=== PATIENT | male | born 1980 | race Caucasian/White ===

== ENCOUNTER 2017-12-26 07:00 | Inpatient (IN) | payer OTHER ==
[~2017-12-26] VITALS: Ht 185.4 cm; Wt 92.5 kg
[~2017-12-26 07:00] MED LIST: ALLOPURINOL100 M1 PO; AUGMENTIN 875875 MG PO; CANASA1000 MG RC; DICYCLOMINE HCL10 M1 PO; MERCAPTOPURINE50 M1 PO; MULTIVITAMINS1 EAC9 PO
[2018-01-22 06:37] LABS: ABSOLUTE BASOPHIL COUNT 0 /CUMM (0.0-0.2); ABSOLUTE EOSINOPHIL COUNT 3.2 /CUMM (0.0-0.7); ABSOLUTE GRANULOCYTE CT 4.7 /CUMM (1.4-6.5); ABSOLUTE LYMPH COUNT 1.8 /CUMM (1.2-3.4); BASOPHIL % 0.4 % (0.0-2.0); EOSINOPHIL % 29.6 % (0-5); GRANULOCYTE % 43.6 % (42.2-75.2); HEMATOCRIT 32.8 % (42-52); MEAN CORPUSCULAR HGB 31.8 PG (27.0-31.0); MEAN CORPUSCULAR HGB CONC 32.7 G/DL (33.0-37.0); MEAN PLATELET VOLUME 6.3 FL (7.4-10.4); PLATELET COUNT 742 /CUMM (130-400); RBC DISTRIBUTION WIDTH 18.8 % (11.5-14.5); RED BLOOD CELL CT 3.39 /CUMM (4.70-6.10); WHITE BLOOD CELL COUNT 10.8 /CUMM (4.8-10.8)
--- NOTE | 2018-01-22 14:45 | Admission Core Measures ---
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
--- NOTE | 2018-01-22 14:50 | Patient Discharge Instructions ---
Discharge Instructions General Discharge Information You were seen/treated for: Indeterminate colitis Cystotomy You had these procedures: Robotic procotocolectomy with diverting ileostomy Cystostomy repair Watch for these problems: Increased pain, nausea, vomiting, fever > 101.3, chills, redness or drainage from incisions Call Surgeon to remove: [place] Do not soak the wound: Yes Daily wet to dry dressings: No No bath, but you may shower: Yes Other wound care: Keep incisions clean and dry Keep ESTELA in place until wills is removed Special Instructions: Follow up with Urologist, Dr. Calderon on 02/04 for cystoscopy and wills removal Diet Continue normal diet: No Recommended Diet: Low Residue Activity Full Activity/No Limits: No Activity Self Limited: Yes Pounds, do NOT lift more than: 10 Other activity limits: No heavy lifting or strenous activity Acute Coronary Syndrome Inclusion Criteria At DC or during hospital stay patient has or had the following: ACS DIAGNOSIS No Discharge Core Measures Meds if any: Prescribed or Continued at Discharge Meds if any: NOT Prescribed or Continued at Discharge Congestive Heart Failure Inclusion Criteria At DC or during hospital stay patient has or had the following: CHF DIAGNOSIS No Discharge Core Measures Meds if any: Prescribed or Continued at Discharge Meds if any: NOT Prescribed or Continued at Discharge Cerebrovascular accident Inclusion Criteria At DC or during hospital stay patient has or had the following: CVA/TIA Diagnosis No Discharge Core Measures Meds if any: Prescribed or Continued at Discharge Meds if any: NOT Prescribed or Continued at Discharge Venous thromboembolism Inclusion Criteria VTE Diagnosis No VTE Type NONE VTE Confirmed by (Test) NONE Discharge Core Measures - Per Current guidelines, there needs to be overlap - treatment for the first 5 days of Warfarin therapy. - If discharged on Warfarin prior to 5 days of - overlap therapy, the patient will need to be - assessed for post discharge needs including - *Post discharge parental anticoagulation - *Warfarin and/or parental anticoagulation education - *Follow up date to check INR post discharge At least 5 days overlap therapy as Inpatient No Meds if any: Prescribed or Continued at Discharge Note: Overlap Therapy is Warfarin and Anticoagulant Meds if any: NOT Prescribed or Continued at Discharge
--- NOTE | 2018-01-22 15:00 | Operative Report ---
Operative/Inv Procedure Report Surgery Date: 01/22/18 Name of Procedure: 1. Robotic total proctocolectomy with formation of ileoanal J-pouch and diverting ileostomy 2. Repair of cystotomy 3. Rigid sigmoidoscopy Pre-Operative Diagnosis: Indeterminant colitis failing medical therapy Post-Operative Diagnosis: Indeterminant colitis failing medical therapy Estimated Blood Loss: 50ml to 100ml Surgeon/Instructor Traffic Safety: Jean-Pierre Paz Jr., DO Anesthesia: general endotracheal tube, block Monitors: Per routine Urine Output: Refer to anesthesia record Drains: One ESTELA in the pelvis Downs catheter Specimens: Total proctocolectomy for routine path Complications: Inadvertent cystostomy-puncture of urinary bladder Condition: Good Operative Indication: This is a 37-year-old gentleman with colitis thought to likely be ulcerative colitis but officially diagnosis indeterminate colitis. He has failed multiple medical regimens continues to be very symptomatic. Patient was referred to me for discussion of total colectomy with J-pouch. After careful discussion consideration patient decided to proceed with surgery. Patient understands that if his diagnosis were to change to Crohn's disease and he would have a high likelihood of losing his pouch. We also discussed other potential complications of surgery including: Infection, bleeding, injury to other organs, and postop urogenital dysfunction Operative/Procedure Note Note: On the day before his procedure the patient about prep at home including oral laxatives and oral antibiotics. He presented to [facility] morning of his surgery after drinking 12 ounces of apple juice. When the patient arrived at the hospital he received the usual ERAS medications. He was taken into the operating room. Placed in supine position on the operating room table. He underwent induction of general anesthesia placement of endotracheal tube and placement of Downs catheter. Next he had bilateral TAP blocks performed by the anesthesia department. He then was converted to lithotomy position and secured to the bed with both arms tucked. Next, the abdomen and perineum were prepped and draped in usual fashion. We gained access the abdominal cavity using a Veress needle technique. The Veress needle was inserted in the midclavicular line just subcostal on the left in the abdomen was insufflated to 15 mmHg. The robotic ports were placed in a line drawn between the midclavicular line in the left in the right lower quadrant. The #1, #2, and #3 ports were 8 mm da Mihai ports. The #4 port was a 12 mm da Mihai stapler port. A right lateral 8 mm air seal assistant corporate controller port was placed. A 5 mm left lower quadrant and a 5 mm left upper quadrant port was also placed. Fluoroscopic expiration of the abdominal cavity was performed the small bowel appeared completely normal. The colon appeared inflamed and swollen especially on the left side. The patient was placed in Trendelenburg right side down. The robot was docked. The rectosigmoid was grasped and I began my dissection. I incised the peritoneum at the sacral promontory into the posterior avascular space of the rectum and then did a medial to lateral dissection until I could clearly identify the iliac vessels on the left in the ureter on the left. I also did clearly identify the right ureter. Next I continued my mobilization in the posterior avascular space of the rectum until I reached the levators posteriorly. The rectal stalks were divided first to the right into the left using the vessel sealing device. I developed the plane between the urogenital structures and the anterior rectum anteriorly also to light reached the levators. At this point I prepared to take the vascular structures. The inferior mesenteric artery and vein were identified. The vessels were skeletonized. The vessels were then divided and ligated with a robotic 45 mm white stapler. Next I mobilized the white line of Toldt from the pelvic inlet all the way until the very proximal descending colon. At this point I prepared to transect the rectum. The rectum was transected just above the levators and anterior to posterior fashion with a robotic 45 mm green GOLDIE stapler. A second stapling was required to complete the transection. Next using table motioned the patient was converted to reverse Trendelenburg. I divided the remainder of the left colon mesentery using the robotic vessel sealer. I completely took down the splenic flexure using the robotic vessel sealer and was able to take down part of the gastrocolic ligament as well as part of the transverse colon mesentery was divided. At this point the robot was undocked and we proceeded with laparoscopic dissection. The patient was placed in slight Trendelenburg left side down the cecum was identified. I traced out the ileal colic vessels as they crossed over the duodenum. The vessels were skeletonized to the right lateral side of the duodenum and then divided with the LigaSure device. I carried out a medial to lateral dissection freeing the nasal colon from Gerona's fascia in the avascular space until I reached the lateral sidewall. Line of Toldt was taken down using the LigaSure and the hepatic flexure was taken down. I Continued to carry out my dissection now dividing the colic ligament for the entire length of the transverse colon. Made sure to identify the duodenum and the stomach and acute by dissection safely away from the structures. I then divided the remaining transverse colon mesentery using the lap scopic LigaSure device. At this point the colon had been completely mobilized and completely disconnected from its blood supply. Pneumoperitoneum was let down. A 6 cm Pfannenstiel incision was performed 2 cm breaths above the pubic symphysis. A wound protector was placed through this incision and I was able to extract the entire colon and a good portion of the terminal ileum through this incision. The mesentery at the junction of the terminal ileum and cecum w was ligated and divided with the vessel sealer. A 60 mm purple GOLDIE stapler was used to transect the bowel at the level of the ileocecal valve. The specimen was removed from the field. Next we fashioned a J-pouch. The terminal ileum was folded over on itself to create a 20 cm J limb. I tacked the 2 sides of the limb together with interrupted 3-0 Vicryl sutures. I imbricated the GOLDIE staple line in a Lembert fashion with interrupted 3-0 Vicryl sutures. Enterotomy was made at the apex of the J. The GOLDIE stapler was then used to create the common channel. 3 firings of the 60 mm load and 1 firing of the 45 mm pupil load were used to create the common channel. Next I reinforced the staple line with interrupted 3-0 Vicryl sutures placed in Lembert fashion. A handsewn her string was performed at the open end of the J-pouch with 2-0 Prolene suture. I chose a 28 EEA stapler for anastomosis. The anvil was placed deliver the bowel and the [place] was tied snugly around the PEG of the bowel. The pouch was reduced back into the abdominal cavity and the cap was placed over the protector. We reestablished pneumoperitoneum we swept all the small bowel out of the pelvis we irrigated out the pelvis and inspected for hemostasis. Hemostasis was good. First the EEA sizers and then the EEA stapler passed transanally the spike was advanced through the rectal pouch right through the staple line almost at the central portion of the staple line. The 2 ends of the stapler were laparoscopically mated. We made sure there was no kinking or twisting in the mesentery to the pouch. This was filled with sterile saline the bowel was occluded above the pouch and a air test was performed which was negative for air leaks. The rigid sigmoidoscope was used perform this test and I inspected the pouch which appeared hemostatic and airtight. Next I chose my ileostomy site about 30-40 cm proximal to the pouch and a umbilical tape was threaded through the mesentery. Umbilical tape was grasped with a laparoscopic grasper through the #3 port which was to become the ileostomy site. A ESTELA drain was placed in the pelvis to the right lower quadrant 12 mm port. Next, pneumoperitoneum was let down. The #38 mm port was then converted to stoma site a tumor plug of skin and soft tissue was excised down to the fascia fascia was divided in a cruciate fashion I gently dilated the fashion was able to pull the small bowel through the fascia using the umbilical tape. The tape was exchanged with a red rubber catheter. Next we prepare for closure.. As I was preparing to close the peritoneum of the Pfannenstiel incision I noticed a small cystotomy at the apex of the dome of the bladder. This was clearly a full-thickness cystotomy but only about 5 mm in length. This cystotomy was closed in 2 layers. The inner layer was closed with a running 3-0 Vicryl suture. A second layer was performed with interrupted 3-0 Vicryl's in Lembert fashion reinforcing the inner staple line. The perineum was closed with a running 2-0 Vicryl suture. The fascia was closed transversely with a #1 PDS suture. The subcutaneous tissue was copiously irrigated and then the skin was closed with skin kristian. Ports had all been removed under direct visualization of the laparoscope and all the ports were closed with subcuticular 4-0 Monocryl and then skin glue. The abdomen was cleansed and dried. Sterile dressing was placed over the anus incision. Drain sponges placed around the ESTELA had been secured to the skin with 3-0 nylon. The abdomen was toweled off and we matured the stoma. A double barrel Clau type stoma was created with interrupted 3-0 Vicryl sutures. The red rubber catheter was converted to a stoma bridge secured to the skin on either side of the stoma and then tails were tied together with heavy nylon suture. A stomal collection device was placed. The patient was converted back to supine position. Patient was explained in the operating room. The patient tolerated the procedure well. At the end of this operational needle sponges and Schmidts were accounted for. Findings: No evidence of small bowel Crohn's disease Discharge Disposition: Same Day Admissions CC: Dm TIM,Don
[2018-01-22 16:10] VITALS: BP 124/82
--- NOTE | 2018-01-22 17:11 | PN- General Surgery ---
Subjective Subjective: POSTOP CHECK Patient reports nausea sensation which resolved with Zofran. He reports pelvic and bladder pain. He reports shoulder pain. He denies drinking or ambulating. He offers no other complaints. Objective Vital Signs and I&Os afebrile, VSS, O2 98% on 3L Physical Exam: Gen - nad, on 3L O2 via nc HEENT - subq crepitus in upper chest, neck and face Cardiac - S1S2 noted Lungs - CTAB Abd - soft, nondistended, ileostomy with gas and bilious/liquid stool in the ostomy bag, nellie drain with serosanguinous drainage, reinforced with abds, pelvic dressing c/d/i, faint bs, appropriately tender per-incisionally, no rebound or guarding Ext - alps in place, no edema or calf pain Current Medications: Current Medications Sig/Steve Start time Last Medication Dose Route Stop Time Status Admin Acetaminophen 1,000 MG TID 01/22 2100 AC PO Acetaminophen 0 .STK-MED ONE 01/22 0702 DC PO Acetaminophen 2,000 MG .STK-MED ONE 01/22 0653 DC IV 01/22 0654 Acetaminophen 1,000 MG ONCE 01/22 0000 DC PO 01/22 2359 Allopurinol 100 MG DAILY 01/23 0900 AC PO Alvimopan 12 MG BID 01/22 2100 AC PO Alvimopan 12 MG ONCE 01/22 0000 DC PO 01/22 2359 Bupivacaine Liposome 266 MG .STK-MED ONE 01/22 0747 DC INF 01/22 0748 Cefazolin Sodium 2 GM IQ8 01/22 1600 AC N/A 1 UNIT IV 01/23 0029 Dextrose/Sodium 1,000 ML .[id number] 01/22 1630 AC 01/22 Chloride IV 1648 Fentanyl Citrate 500 MCG .STK-MED ONE 01/22 0653 DC IM 01/22 0654 Gabapentin 300 MG Q8 01/22 2200 AC PO Gabapentin 600 MG ONCE 01/22 0000 DC PO 01/22 2359 Heparin Sodium 5,000 UNIT Q8 01/22 2200 AC (Porcine) SC Hydromorphone HCl 4 MG .STK-MED ONE 01/22 0652 DC IM 01/22 0653 Midazolam HCl 2 MG .STK-MED ONE 01/22 0653 DC IM 01/22 0654 Ondansetron HCl 4 MG Q6P PRN 01/22 1630 AC 01/22 IV 1648 Oxycodone HCl 5 MG Q4-6 PRN PRN 01/22 1630 AC PO Oxycodone HCl 10 MG Q4-6 PRN PRN 01/22 1630 AC PO Tramadol HCl 100 MG Q6P PRN 01/22 1630 AC 01/22 PO 1721 Tramadol HCl 50 MG Q6 PRN 01/22 1500 AC PO Results Last 48 Hours of Labs: Laboratory Tests 01/22 0623 Chemistry Sodium (137 - 145 mmol/L) 142 Potassium (3.5 - 5.1 mmol/L) 4.1 Chloride (98 - 107 mmol/L) 104 Carbon Dioxide (22 - 30 mmol/L) 25 Anion Gap (5 - 16) 12 BUN (9 - 20 mg/dL) 7 L Creatinine (0.7 - 1.2 mg/dL) 0.9 Estimated GFR (>60 ml/min) > 60 BUN/Creatinine Ratio (7 - 25 %) 7.8 Glucose (65 - 99 mg/dL) 116 H Calcium (8.4 - 10.2 mg/dL) 8.9 Hematology CBC w Diff NO MAN DIFF REQ WBC (4.8 - 10.8 /CUMM) 10.8 RBC (4.70 - 6.10 /CUMM) 3.39 L Hgb (14.0 - 18.0 G/DL) 10.8 L Hct (42 - 52 %) 32.8 L MCV (80.0 - 94.0 FL) 97.0 H MCH (27.0 - 31.0 PG) 31.8 H MCHC (33.0 - 37.0 G/DL) 32.7 L RDW (11.5 - 14.5 %) 18.8 H Plt Count (130 - 400 /CUMM) 742 H MPV (7.4 - 10.4 FL) 6.3 L Gran % (42.2 - 75.2 %) 43.6 Lymphocytes % (20.5 - 51.1 %) 16.7 L Monocytes % (1.7 - 9.3 %) 9.7 H Eosinophils % (0 - 5 %) 29.6 H Basophils % (0.0 - 2.0 %) 0.4 Absolute Granulocytes (1.4 - 6.5 /CUMM) 4.7 Absolute Lymphocytes (1.2 - 3.4 /CUMM) 1.8 Absolute Monocytes (0.10 - 0.60 /CUMM) 1.0 H Absolute Eosinophils (0.0 - 0.7 /CUMM) 3.2 Absolute Basophils (0.0 - 0.2 /CUMM) 0 Assessment/Plan Assessment/Plan 37 M s/p robotic TPC with j pouch and diverting ileostomy with repair of cystotomy due to indeterminate colitis with expected postop pain and ostomy function Advance to clears IVF overnight ERAS protocol Postop abx - ancef x2 Antiemetics on board DVT ppx - alps, hsq Encourage IS, ambulation Ostomy teaching NELLIE to bulb suction Wean O2 Urology c/s, Dr. Calderon to see in am Downs to remain in place x10 days Core Measures Venous Thromboembolism VTE Risk Factors Surgery No Mechanical VTE Prophylaxis d/t N/A MechProphylax Ordered No VTE Pharm Prophylaxis d/t NA PharmProphylax ordered
[2018-01-22 22:15] VITALS: BP 124/76
[2018-01-23 06:30] VITALS: BP 138/72
--- NOTE | 2018-01-23 07:52 | PN- General Surgery ---
See Addendum Subjective Subjective: Patient continues to complain of pelvic and bladder discomfort unrelieved with current pain regimen. He reports pain with deep inspiration. He reports vomiting clear liquids last night around 8. He denies any further vomiting, nausea or belching. He offers no other complaints. Objective Vital Signs and I&Os Vital Signs Date Time Temp Pulse Resp B/P B/P Pulse O2 O2 Flow FiO2 Mean Ox Delivery Rate 01/23 0630 98.1 96 18 138/72 90 Room Air 01/22 2215 98.0 83 18 124/76 95 Room Air 01/22 1610 98.6 82 16 124/82 Intake & Output 01/23 0800 01/23 0000 01/22 1600 01/22 0800 01/22 0000 01/21 1600 Intake Total 690 470 Output Total 1280 475 Balance -590 -5 Intake, IV 670 350 Intake, Oral 20 120 Output, 60 75 Drainage Output, Stool 120 Output, Urine 1100 400 Patient 205 lb Weight Weight Reported by Patient Measurement Method Physical Exam: Gen - nad, on 3L O2 via nc HEENT - subq crepitus in upper chest, neck and face, improving Cardiac - S1S2 noted Lungs - CTAB Abd - softly distended, ileostomy with gas and bilious/liquid stool in the ostomy bag, nellie drain with serosanguinous drainage, pelvic dressing c/d/i, faint bs, appropriately tender per-incisionally, no rebound or guarding Ext - alps in place, no edema or calf pain Current Medications: Current Medications Sig/Steve Start time Last Medication Dose Route Stop Time Status Admin Acetaminophen 1,000 MG TID 01/23 09 AC PO Acetaminophen 1,000 MG TID 01/22 2100 DC PO Acetaminophen 1,000 MG ONCE ONE 01/22 2015 DC 01/22 N/A 1 UNIT IV 01/22 Acetaminophen 1,000 MG ONCE 01/22 0000 DC PO 01/22 2359 Allopurinol 100 MG DAILY 01/23 09 AC PO Alvimopan 12 MG BID 01/22 2100 AC 01/22 PO 2108 Alvimopan 12 MG ONCE 01/22 0000 DC PO 01/22 2359 Cefazolin Sodium 2 GM IQ8 01/22 1600 DC 01/23 N/A 1 UNIT IV 01/23 0029 0008 Dextrose/Sodium 1,000 ML .[id number] 01/22 1630 AC 01/23 Chloride IV 0016 Gabapentin 300 MG Q8 01/22 2200 AC 01/23 PO 0532 Gabapentin 600 MG ONCE 01/22 0000 DC PO 01/22 2359 Heparin Sodium 5,000 UNIT Q8 01/22 2200 AC 01/23 (Porcine) SC 0538 Hydromorphone HCl 2 MG .STK-MED ONE 01/22 1552 DC IM 01/22 1553 Hydromorphone HCl 2 MG .STK-MED ONE 01/22 1531 DC IM 01/22 1532 Hydromorphone HCl 2 MG .STK-MED ONE 01/22 1515 DC IM 01/22 1516 Hydromorphone HCl 2 MG .STK-MED ONE 01/22 1506 DC IM 01/22 1507 Hydromorphone HCl 2 MG .STK-MED ONE 01/22 1451 DC IM 01/22 1452 Morphine Sulfate 2 MG ONCE ONE 01/23 0245 DC 01/23 IV 01/23 0246 0253 Morphine Sulfate 2 MG ONCE ONE 01/22 2015 DC 01/22 IV 01/22 2016 2038 Ondansetron HCl 4 MG Q6P PRN 01/22 1630 AC 01/22 IV 1648 Oxycodone HCl 5 MG Q4-6 PRN PRN 01/22 1630 AC PO Oxycodone HCl 10 MG Q4-6 PRN PRN 01/22 1630 AC 01/23 PO 0532 Promethazine HCl 12.5 MG Q4 HRS NEEDED PRN 01/22 2015 AC 01/22 IV 01/29 Tramadol HCl 100 MG Q6P PRN 01/22 1630 01/23 PO 0002 Tramadol HCl 50 MG Q6 PRN 01/22 1500 AC PO Results Last 48 Hours of Labs: Laboratory Tests 01/23 07 0700 0623 Chemistry Sodium (137 - 145 mmol/L) Pending 142 Potassium (3.5 - 5.1 mmol/L) Pending 4.1 Chloride (98 - 107 mmol/L) Pending 104 Carbon Dioxide (22 - 30 mmol/L) Pending 25 Anion Gap (5 - 16) Pending 12 BUN (9 - 20 mg/dL) Pending 7 L Creatinine (0.7 - 1.2 mg/dL) Pending 0.9 Estimated GFR (>60 ml/min) > 60 BUN/Creatinine Ratio (7 - 25 %) Pending 7.8 Glucose (65 - 99 mg/dL) 116 H Calcium (8.4 - 10.2 mg/dL) 8.9 Hematology CBC w Diff Pending NO MAN DIFF REQ WBC (4.8 - 10.8 /CUMM) Pending 10.8 RBC (4.70 - 6.10 /CUMM) Pending 3.39 L Hgb (14.0 - 18.0 G/DL) Pending 10.8 L Hct (42 - 52 %) Pending 32.8 L MCV (80.0 - 94.0 FL) Pending 97.0 H MCH (27.0 - 31.0 PG) Pending 31.8 H MCHC (33.0 - 37.0 G/DL) Pending 32.7 L RDW (11.5 - 14.5 %) Pending 18.8 H Plt Count (130 - 400 /CUMM) Pending 742 H MPV (7.4 - 10.4 FL) Pending 6.3 L Gran % (42.2 - 75.2 %) 43.6 Lymphocytes % (20.5 - 51.1 %) 16.7 L Monocytes % (1.7 - 9.3 %) 9.7 H Eosinophils % (0 - 5 %) 29.6 H Basophils % (0.0 - 2.0 %) 0.4 Absolute Granulocytes (1.4 - 6.5 /CUMM) 4.7 Absolute Lymphocytes (1.2 - 3.4 /CUMM) 1.8 Absolute Monocytes (0.10 - 0.60 /CUMM) 1.0 H Absolute Eosinophils (0.0 - 0.7 /CUMM) 3.2 Absolute Basophils (0.0 - 0.2 /CUMM) 0 Assessment/Plan Assessment/Plan 37 M POD 1 s/p robotic TPC with j pouch and diverting ileostomy with repair of cystotomy due to indeterminate colitis with inadequate postop pain and ostomy function Continue clears D/c IVF once adequate oral intake Antiemetics on board ERAS protocol IV Dilaudid for breakthrough pain DVT ppx - alps, hsq Encourage IS, ambulation Ostomy teaching NELLIE to bulb suction Wean O2 F/u am labs Urology c/s, Dr. Calderon to to today Downs to remain in place x10 days Will d/w Dr. Paz Core Measures Venous Thromboembolism VTE Risk Factors Surgery No Mechanical VTE Prophylaxis d/t N/A MechProphylax Ordered No VTE Pharm Prophylaxis d/t NA PharmProphylax ordered
[2018-01-23 07:54] LABS: ABSOLUTE EOSINOPHIL COUNT 0.1 /CUMM (0.0-0.7); ABSOLUTE MONOCYTE COUNT 0.9 /CUMM (0.10-0.60)
[2018-01-23 08:08] LABS: ABSOLUTE BASOPHIL COUNT 0 /CUMM (0.0-0.2); ABSOLUTE GRANULOCYTE CT 6.2 /CUMM (1.4-6.5); ABSOLUTE LYMPH COUNT 0.9 /CUMM (1.2-3.4); BASOPHIL % 0.3 % (0.0-2.0); EOSINOPHIL % 1.5 % (0-5); MEAN CORPUSCULAR HGB 31.3 PG (27.0-31.0); MEAN CORPUSCULAR HGB CONC 32.5 G/DL (33.0-37.0); MEAN CORPUSCULAR VOLUME 96.1 FL (80.0-94.0); MEAN PLATELET VOLUME 6.8 FL (7.4-10.4); PLATELET COUNT 611 /CUMM (130-400); RED BLOOD CELL CT 2.87 /CUMM (4.70-6.10); WHITE BLOOD CELL COUNT 8.1 /CUMM (4.8-10.8)
[2018-01-23 08:18] LABS: GRANULOCYTE % 76.4 % (42.2-75.2); HEMATOCRIT 27.6 % (42-52)
--- NOTE | 2018-01-23 14:35 | Surgical Discharge Summary ---
Visit Information Visit Dates Admission Date: 01/22/18 History of Present Illness Medical History History of MRSA: No History of VRE: No History of CDIFF: No Isolation History: Standard Psychosocial History What is Your Primary Language? Peruvian Review of Systems: Refer to H&P Hospital Course Course Attending Physician: Jean-Pierre Paz Jr., DO Primary Care Physician: Shannon TIM,Jean-Pierre Hidalgo Hospital Course: Patient presented electively for a robotic total proctocolectomy with formation of ileoanal J-pouch, diverting ileostomy and repair of cystotomy for indeterminate colitis on 01/20/[address] Paz. ERAS protocol initiated preop and maintained postop. Diet was advanced and tolerated with ostomy function. ESTELA was removed prior to discharge. Downs will remain in place for 10 days postop. At the time of discharge he was tolerating a regular diet, ambulating without difficulty and his pain was well controlled. Complications: Cystotomy Allergies: Coded Allergies: No Known Allergies (12/24/17) Significant Procedures: Surgery Date: 01/22/18 Name of Procedure: 1. Robotic total proctocolectomy with formation of ileoanal J-pouch and diverting ileostomy 2. Repair of cystotomy 3. Rigid sigmoidoscopy Disposition Summary Disposition Principal Diagnosis: Indeterminant colitis Discharge Instructions General Discharge Information Code Status: Full Code Patient's Diet: Low residue Patient's Activity: Ambulate Follow-Up Instructions/Appts: 1-[address] aPz Medications at Discharge Discharge Medications: Stop taking the following medications: Mercaptopurine (Mercaptopurine) 50 MG TABLET ORAL DAILY Dicyclomine HCl (Dicyclomine HCl) 10 MG CAPSULE ORAL DAILY Continue taking these medications: Allopurinol (Allopurinol) 100 MG TABLET 1 Tablet ORAL DAILY Multiple Vitamin (Multivitamins) 1 EACH TABLET 1 Tablet ORAL DAILY 1 Tablet ORAL DAILY
[2018-01-23 14:38] VITALS: BP 123/80
--- NOTE | 2018-01-23 16:14 | Surgical Discharge Summary ---
Visit Information Visit Dates Admission Date: 01/22/18 Discharge Date: 01/27/18 History of Present Illness Chief Complaint: Indeterminate colitis Medical History History of MRSA: No History of VRE: No History of CDIFF: No Isolation History: Standard Surgical History Pertinent Surgical History: non-contributory Psychosocial History What is Your Primary Language? Telugu Review of Systems: Refer to H&P Physical Exam: General: A, A, NAD Abdomen: Soft, ND, appropriately ttp, incisions are c/d/i with glue in place except pfannenstiel incision which is c/d/i with kristian in place, ostomy is pink, functioning and viable with stool and air in the appliance, old nellie site with serosanguinous drainage Extremities: No clubbing, cyanosis or edema Hospital Course Course Attending Physician: Jean-Pierre Paz Jr., DO Primary Care Physician: Jean-Pierre Ortega MD Hospital Course: Patient presented electively for a robotic total proctocolectomy with formation of ileoanal J-pouch, diverting ileostomy and repair of cystotomy for indeterminate colitis on 01/20/[address] Paz. ERAS protocol initiated preop and maintained postop. Diet was advanced and tolerated with ostomy function. Ostomy teaching was provided while hospitalized. NELLIE was removed prior to discharge. Wills remained in place upon discharge. He will follow up with Dr. Calderon in an outpatient setting for cystoscopy and wills removal. At the time of discharge he was tolerating a regular diet, ambulating without difficulty and his pain was well controlled. Complications: Cystotomy Allergies: Coded Allergies: No Known Allergies (12/24/17) Significant Procedures: Surgery Date: 01/22/18 Name of Procedure: 1. Robotic total proctocolectomy with formation of ileoanal J-pouch and diverting ileostomy 2. Repair of cystotomy 3. Rigid sigmoidoscopy Disposition Summary Disposition Principal Diagnosis: Indeterminant colitis Additional Diagnosis: Cystotomy Discharge Disposition: home health services Discharge Instructions General Discharge Information Code Status: Full Code Patient's Diet: Low residue Patient's Activity: Ambulate Follow-Up Instructions/Appts: 1-[address] Paz Medications at Discharge Discharge Medications: Stop taking the following medications: Mercaptopurine (Mercaptopurine) 50 MG TABLET ORAL DAILY Dicyclomine HCl (Dicyclomine HCl) 10 MG CAPSULE ORAL DAILY Continue taking these medications: Allopurinol (Allopurinol) 100 MG TABLET 1 Tablet ORAL DAILY Multiple Vitamin (Multivitamins) 1 EACH TABLET 1 Tablet ORAL DAILY Start taking the following new medications: Oxycodone HCl (Roxicodone) 5 MG TABLET 1-2 Tablet ORAL EVERY 4-6 HOURS NEEDED as needed for PAIN Qty = 30 No Refills Gabapentin (Neurontin) 300 MG CAPSULE 1 Capsule ORAL THREE TIMES DAILY Qty = 21 No Refills Acetaminophen (Tylenol Extra Strength) 500 MG TABLET 1-2 Tablet ORAL THREE TIMES DAILY Qty = 30 No Refills Diphenoxylate HCl/Atropine (Lomotil 2.5-0.025 MG Tablet) 2.5 MG-0.025 MG TABLET 1 Tablet ORAL THREE TIMES DAILY Qty = 30 No Refills Copies To: Brandi Díaz DO,Jean-Pierre Medrano; Shannon TIM,Jean-Pierre Hidalgo
[2018-01-23 22:00] VITALS: BP 118/76
[2018-01-24 06:20] VITALS: BP 132/84
--- NOTE | 2018-01-24 07:48 | PN- General Surgery ---
See Addendum Subjective Subjective: pod#2 robotic tpc w/ileostomy less bloating and pain with clear diet denies cp, sob, no n+v iwth diet has been oob/ambulating Objective Vital Signs and I&Os Vital Signs Date Time Temp Pulse Resp B/P B/P Pulse O2 O2 Flow FiO2 Mean Ox Delivery Rate 01/24 0620 98.4 87 18 132/84 96 Room Air 01/23 2200 97.8 108 16 118/76 95 Room Air 01/23 1438 98.3 87 20 123/80 96 Room Air 01/23 1130 Room Air Room Air Intake & Output / 0800 07/ 0000 01/23 1600 01/23 0800 01/23 0000 01/22 1600 Intake Total 300 200 690 470 Output Total 665 1260 2590 1280 475 Balance -365 -1060 -2590 -590 -5 Intake, IV 670 350 Intake, Oral 300 200 20 120 Output, 65 35 40 60 75 Drainage Output, Stool 300 400 400 120 Output, Urine 220 604 8503 1100 400 Patient 205 lb Weight Weight Reported by Patient Measurement Method Physical Exam: Gen - nad, on 3L O2 via nc HEENT - subq crepitus in upper chest, neck and face, improving Cardiac - S1S2 noted Lungs - CTAB Abd - softly distended, ileostomy with gas and bilious/liquid stool in the ostomy bag, nellie drain with serosanguinous drainage, pelvic dressing c/d/i, faint bs, appropriately tender per-incisionally, no rebound or guarding Ext - alps in place, no edema or calf pain nellie: cont serosanginous output overnight Assessment/Plan Assessment/Plan improving surgically plan cont oob eras protocol hep sq/alps cont wills per urology advance diet per attending Core Measures Venous Thromboembolism VTE Risk Factors Surgery No Mechanical VTE Prophylaxis d/t N/A MechProphylax Ordered No VTE Pharm Prophylaxis d/t NA PharmProphylax ordered
[2018-01-24 09:15] LABS: ABSOLUTE BASOPHIL COUNT 0 /CUMM (0.0-0.2); ABSOLUTE EOSINOPHIL COUNT 0.7 /CUMM (0.0-0.7); ABSOLUTE GRANULOCYTE CT 9.5 /CUMM (1.4-6.5); ABSOLUTE MONOCYTE COUNT 0.9 /CUMM (0.10-0.60); BASOPHIL % 0.1 % (0.0-2.0); GRANULOCYTE % 78.2 % (42.2-75.2); MEAN CORPUSCULAR HGB 30.8 PG (27.0-31.0); MEAN CORPUSCULAR VOLUME 96.2 FL (80.0-94.0); MEAN PLATELET VOLUME 7.1 FL (7.4-10.4); PLATELET COUNT 607 /CUMM (130-400); RBC DISTRIBUTION WIDTH 19.1 % (11.5-14.5); RED BLOOD CELL CT 3.39 /CUMM (4.70-6.10); WHITE BLOOD CELL COUNT 12.1 /CUMM (4.8-10.8)
[2018-01-24 09:39] LABS: HEMATOCRIT 32.6 % (42-52)
[2018-01-24 15:36] VITALS: BP 126/88
[2018-01-24 21:38] VITALS: BP 110/80
[2018-01-25 06:50] VITALS: BP 126/72
[2018-01-25 08:56] LABS: ABSOLUTE BASOPHIL COUNT 0.1 /CUMM (0.0-0.2); ABSOLUTE EOSINOPHIL COUNT 2.4 /CUMM (0.0-0.7); ABSOLUTE GRANULOCYTE CT 5.5 /CUMM (1.4-6.5); ABSOLUTE LYMPH COUNT 2.1 /CUMM (1.2-3.4); ABSOLUTE MONOCYTE COUNT 0.7 /CUMM (0.10-0.60); EOSINOPHIL % 22.5 % (0-5); GRANULOCYTE % 51.1 % (42.2-75.2); HEMATOCRIT 31.9 % (42-52); MEAN CORPUSCULAR VOLUME 96.8 FL (80.0-94.0); MEAN PLATELET VOLUME 6.6 FL (7.4-10.4); PLATELET COUNT 648 /CUMM (130-400); RED BLOOD CELL CT 3.29 /CUMM (4.70-6.10); WHITE BLOOD CELL COUNT 10.8 /CUMM (4.8-10.8)
--- NOTE | 2018-01-25 10:07 | Cons- Urology ---
General Information and HPI Allergies/Medications Allergies: Coded Allergies: No Known Allergies (12/24/17) Home Med List: Allopurinol 100 MG TABLET 1 TAB PO DAILY URIC ACID (Reported) Dicyclomine HCl 10 MG CAPSULE 1 CAP PO DAILY UC (Reported) Mercaptopurine 50 MG TABLET 1 TAB PO DAILY UC (Reported) Multiple Vitamin (Multivitamins) 1 EACH TABLET 1 TAB PO DAILY SUPPLEMENT ( Reported) Past History Psychosocial History Smoking Status: Never Smoked Assessment/Plan Consult Acknowledgment - Thank you for your consult request. Attending MD Review Statement Attending Statement Attending MD Statement: examined this patient Attending Assessment/Plan: pt to keep wills: will cystoscope and remove wills in office on 02/04/18
--- NOTE | 2018-01-25 11:07 | PN- General Surgery ---
See Addendum Subjective Subjective: No acute overnight events reported. Pain and bloating improving. Pt requesting diet to be advanced. Denies chest pain, shortness of breath and difficulty breathing. Denies nausea and vomitting. Wills catheter not causing any discomfort. Has been oob. Objective Vital Signs and I&Os Vital Signs Date Time Temp Pulse Resp B/P B/P Pulse O2 O2 Flow FiO2 Mean Ox Delivery Rate 01/25 0650 97.6 70 16 126/72 98 Room Air 01/24 2138 98.4 90 18 110/80 95 01/24 1536 97.8 81 20 126/88 94 Intake & Output 01/25 1600 01/25 0800 01/25 0000 01/24 1600 01/24 0800 01/24 0000 Intake Total 100 200 300 200 Output Total 1130 1070 298 527 7853 Balance -1030 -870 -190 -365 -1060 Intake, Oral 100 200 300 200 Output, 180 70 40 65 35 Drainage Output, Stool 300 100 300 400 Output, Urine 650 900 150 300 825 Patient 204 lb Weight Physical Exam: General: Alert and oriented x3, no acute distress Cardiac: RRR, s1s2 Pulm: CTA bilaterally, non-labored Abdomen: Soft, non-distended, some dustin-incisional tenderness noted Drains/Stoma: ESTELA holding suction, serous drainage from around drain site collecting in dressing, ?urine. Stoma appears viable. Gas and dark, bilious loose stool in bag. Extremities: Moves all extremities, neurovascular status intact. Bilateral calves soft and non-tender. Assessment/Plan Assessment/Plan This is a 37 year old male, POD 3 s/p robot assisted tpc with j pouch, ileostomy , and incidental cystotomy with repair. Bowel function returning. -Advance to low residual diet (will discuss with Dr. Sheldon) -Continue eras protocol -Continue wills -Discussed drainage with Dr. Calderon and Dr. Sheldon Possible urine from cystostomy Send fluid for creatinine level now Possible cystogram tomorrow, possible wills exchange with cysto if needed tomorrow That will be discussed by Dr. Calderon and Dr. Paz or Pito Will make npo p mn in the event that a urologic procedure is indicated tomorrow Core Measures Venous Thromboembolism VTE Risk Factors Surgery No Mechanical VTE Prophylaxis d/t N/A MechProphylax Ordered No VTE Pharm Prophylaxis d/t NA PharmProphylax ordered
[2018-01-25 15:10] VITALS: BP 109/68
[2018-01-25 21:59] VITALS: BP 102/80
[2018-01-26 06:00] VITALS: BP 118/70
--- NOTE | 2018-01-26 07:33 | PN- General Surgery ---
See Addendum Subjective Subjective: Patient reports pain controlled with oxycodone and gabapentin. He reports tolerating fulls and eager to eat. He denies nausea, vomiting or belching. He reports ambulating in the halls. He offers no other complaints. Objective Vital Signs and I&Os Vital Signs Date Time Temp Pulse Resp B/P B/P Pulse O2 O2 Flow FiO2 Mean Ox Delivery Rate 01/26 06 98.7 85 18 118/70 98 Room Air 01/25 2159 98.6 88 20 102/80 98 Room Air 01/25 1510 98.6 85 20 109/68 94 01/25 0800 Room Air Intake & Output 01/26 0801/26 0000 01/25 1600 01/25 0801/25 0000 01/24 1600 Intake Total 0 200 1400 100 200 Output Total 600 1050 1120 1130 1070 190 Balance -600 -850 280 -1030 -870 -190 Intake, Oral 0 200 1400 100 200 Output, 50 50 170 180 70 40 Drainage Output, Stool 250 250 50 300 100 Output, Urine 300 750 900 650 900 150 Patient 204 lb Weight Physical Exam: Gen - nad Cardiac - S1S2 noted Lungs - CTAB Abd - softly nondistended, ileostomy with gas and liquid stool in the ostomy bag , stoma viable, nellie drain with scant serosanguinous drainage, pelvic dressing c/d /i, changed woth guaze and tape, bs normoactive, appropriately tender per- incisionally, no rebound or guarding - wills with clear urine Ext - alps in place, no edema or calf pain Current Medications: Current Medications Sig/Steve Start time Last Medication Dose Route Stop Time Status Admin Acetaminophen 1,000 MG .STK-MED ONE 01/26 1932 DC PO 01/25 1933 Acetaminophen 1,000 MG .STK-MED ONE 01/25 842 DC PO 01/25 08 Acetaminophen 1,000 MG TID 01/23 900 AC 01/25 PO 1999 Allopurinol 100 MG DAILY 01/23 900 AC 01/25 PO 0844 Gabapentin 300 MG Q8 01/22 2200 AC 01/26 PO 0542 Heparin Sodium 5,000 UNIT Q8 01/22 (Porcine) SC 0541 Hydromorphone HCl 0.4 MG Q3P PRN 01/23 0801/23 IV 0822 Ondansetron HCl 4 MG Q6P PRN 01/22 1630 AC 01/22 IV 1648 Oxycodone HCl 5 MG Q4-6 PRN PRN 01/22 163 AC PO Oxycodone HCl 10 MG Q4-6 PRN PRN 01/22 163 AC 01/26 PO 0542 Promethazine HCl 12.5 MG Q4 HRS NEEDED PRN 01/22 2015 AC 01/22 IV 01/29 Tramadol HCl 100 MG Q6P PRN 01/22 163 AC 01/26 PO 0246 Tramadol HCl 50 MG Q6 PRN 01/22 1500 AC PO Results Last 48 Hours of Labs: Laboratory Tests 01/25 01/25 1348 0745 Hematology CBC w Diff MAN DIFF ORDERED WBC (4.8 - 10.8 /CUMM) 10.8 RBC (4.70 - 6.10 /CUMM) 3.29 L Hgb (14.0 - 18.0 G/DL) 10.2 L Hct (42 - 52 %) 31.9 L MCV (80.0 - 94.0 FL) 96.8 H MCH (27.0 - 31.0 PG) 31.0 MCHC (33.0 - 37.0 G/DL) 32.0 L RDW (11.5 - 14.5 %) 19.0 H Plt Count (130 - 400 /CUMM) 648 H MPV (7.4 - 10.4 FL) 6.6 L Gran % (42.2 - 75.2 %) 51.1 Lymphocytes % (20.5 - 51.1 %) 19.1 L Monocytes % (1.7 - 9.3 %) 6.3 Eosinophils % (0 - 5 %) 22.5 H Basophils % (0.0 - 2.0 %) 1.0 Absolute Granulocytes (1.4 - 6.5 /CUMM) 5.5 Absolute Lymphocytes (1.2 - 3.4 /CUMM) 2.1 Absolute Monocytes (0.10 - 0.60 /CUMM) 0.7 H Absolute Eosinophils (0.0 - 0.7 /CUMM) 2.4 Absolute Basophils (0.0 - 0.2 /CUMM) 0.1 Platelet Estimate (ADEQUATE) INCREASED Polychromasia 1+ Anisocytosis 1+ Macrocytic Cells 1+ Other Body Source Fluid Creatinine (mg/dL) 0.8 01/24 0815 Chemistry Sodium (137 - 145 mmol/L) 139 Potassium (3.5 - 5.1 mmol/L) 4.6 Chloride (98 - 107 mmol/L) 101 Carbon Dioxide (22 - 30 mmol/L) 27 Anion Gap (5 - 16) 11 BUN (9 - 20 mg/dL) 8 L Creatinine (0.7 - 1.2 mg/dL) 0.7 Estimated GFR (>60 ml/min) > 60 BUN/Creatinine Ratio (7 - 25 %) 11.4 Hematology CBC w Diff NO MAN DIFF REQ WBC (4.8 - 10.8 /CUMM) 12.1 H RBC (4.70 - 6.10 /CUMM) 3.39 L Hgb (14.0 - 18.0 G/DL) 10.4 L Hct (42 - 52 %) 32.6 L MCV (80.0 - 94.0 FL) 96.2 H MCH (27.0 - 31.0 PG) 30.8 MCHC (33.0 - 37.0 G/DL) 32.0 L RDW (11.5 - 14.5 %) 19.1 H Plt Count (130 - 400 /CUMM) 607 H MPV (7.4 - 10.4 FL) 7.1 L Gran % (42.2 - 75.2 %) 78.2 H Lymphocytes % (20.5 - 51.1 %) 8.5 L Monocytes % (1.7 - 9.3 %) 7.2 Eosinophils % (0 - 5 %) 6.0 H Basophils % (0.0 - 2.0 %) 0.1 Absolute Granulocytes (1.4 - 6.5 /CUMM) 9.5 H Absolute Lymphocytes (1.2 - 3.4 /CUMM) 1.0 L Absolute Monocytes (0.10 - 0.60 /CUMM) 0.9 H Absolute Eosinophils (0.0 - 0.7 /CUMM) 0.7 Absolute Basophils (0.0 - 0.2 /CUMM) 0 Assessment/Plan Assessment/Plan 37 M POD 4 s/p robotic TPC with j pouch and diverting ileostomy and incidental cystotomy repair with a Cr of 0.8 from his NELLIE drain, inconsistent with urine leakage Advance to low residue ERAS protocol Ostomy teaching NELLIE to bulb suction DVT ppx - alps, hsq, ambulate F/u am labs Keep wills in place Cystoscope/wills removal with Dr. Calderon next friday D/w Dr. Paz Core Measures Venous Thromboembolism VTE Risk Factors Surgery No Mechanical VTE Prophylaxis d/t N/A MechProphylax Ordered No VTE Pharm Prophylaxis d/t NA PharmProphylax ordered
[2018-01-26 08:33] LABS: ABSOLUTE BASOPHIL COUNT 0 /CUMM (0.0-0.2); ABSOLUTE EOSINOPHIL COUNT 2.2 /CUMM (0.0-0.7); ABSOLUTE GRANULOCYTE CT 5.5 /CUMM (1.4-6.5); ABSOLUTE LYMPH COUNT 1.6 /CUMM (1.2-3.4); ABSOLUTE MONOCYTE COUNT 0.6 /CUMM (0.10-0.60); BASOPHIL % 0.4 % (0.0-2.0); GRANULOCYTE % 55.2 % (42.2-75.2); HEMATOCRIT 29.9 % (42-52); MEAN CORPUSCULAR HGB 30.9 PG (27.0-31.0); MEAN CORPUSCULAR HGB CONC 32.2 G/DL (33.0-37.0); MEAN CORPUSCULAR VOLUME 95.8 FL (80.0-94.0); MEAN PLATELET VOLUME 6.6 FL (7.4-10.4); PLATELET COUNT 675 /CUMM (130-400); RBC DISTRIBUTION WIDTH 18.8 % (11.5-14.5); RED BLOOD CELL CT 3.12 /CUMM (4.70-6.10); WHITE BLOOD CELL COUNT 9.9 /CUMM (4.8-10.8)
[2018-01-26 14:45] VITALS: BP 120/75
[2018-01-26 22:06] VITALS: BP 124/68
[2018-01-27 07:04] VITALS: BP 112/64
[2018-01-27] MEDS ORDERED: TYLENOL EXTRA500 M2 PO (08:30)
[2018-01-27] MEDS ORDERED: ROXICODONE5 M1 PO (08:30)
[2018-01-27] MEDS ORDERED: NEURONTIN300 M1 PO (08:30)
[2018-01-27] MEDS ORDERED: LOMOTIL 2.5-0.1 EACH PO (08:39)
--- NOTE | 2018-01-27 11:06 | PN- General Surgery ---
Subjective Subjective: Patient doing well this am. Ambulating, tolerating low fiber, and pain well controlled. No issues with wills catheter. Ostomy with full function. Awaiting instruction from Elisabet our wound care/ostomy nurse. Otherwise, ready for discharge home. Objective Vital Signs and I&Os Vital Signs Date Time Temp Pulse Resp B/P B/P Pulse O2 O2 Flow FiO2 Mean Ox Delivery Rate 01/27 0704 98.2 78 12 112/64 94 Room Air 01/26 220 98.6 84 20 124/68 96 Room Air 01/26 1445 98.4 95 20 120/75 95 Room Air Intake & Output 01/27 1600 01/27 0800 01/27 0000 01/26 1600 01/26 0800 01/26 0000 Intake Total 60 200 0 200 Output Total 835 460 744 376 8933 Balance -775 -260 -990 -600 -850 Intake, Oral 60 200 0 200 Output, 10 10 90 50 50 Drainage Output, Stool 100 100 350 250 250 Output, Urine 725 350 550 300 750 Physical Exam: General: A, A, NAD Abdomen: Soft, ND, appropriately ttp, incisions are c/d/i with glue in place except pfannenstiel incision which is c/d/i with kristian in place, ostomy is pink, functioning and viable with stool and air in the appliance, old nellie site with serosanguinous drainage Extremities: No clubbing, cyanosis or edema Current Medications: Current Medications Sig/Steve Start time Last Medication Dose Route Stop Time Status Admin Acetaminophen 1,000 MG .STK-MED ONE 01/26 1514 DC PO 01/26 1515 Acetaminophen 1,000 MG TID 01/23 900 AC 01/27 PO 0950 Allopurinol 100 MG DAILY 01/23 09 AC 01/27 PO 0950 Dextrose/Sodium 1,000 ML .[id number] 01/26 2130 CAN Chloride IV Diphenoxylate HCl/ 2.5 MG TID 01/26 1012 AC 01/27 Atropine PO 0950 Gabapentin 300 MG Q8 01/22 220 AC 01/27 PO 0641 Heparin Sodium 5,000 UNIT Q8 01/22 (Porcine) SC 0641 Hydromorphone HCl 0.4 MG Q3P PRN 01/23 08 AC 01/23 IV 0822 Ondansetron HCl 4 MG Q6P PRN 01/22 163 AC 01/22 IV 1648 Oxycodone HCl 5 MG Q4-6 PRN PRN 01/22 163 AC PO Oxycodone HCl 10 MG Q4-6 PRN PRN 01/22 163 AC 01/27 PO 0641 Promethazine HCl 12.5 MG Q4 HRS NEEDED PRN 01/22 2015 AC 07/ IV 01/29 Tramadol HCl 100 MG Q6P PRN 01/22 163 AC 01/27 PO 0319 Tramadol HCl 50 MG Q6 PRN 01/22 1500 AC PO Results Last 48 Hours of Labs: Laboratory Tests 01/26 01/25 0643 1348 Chemistry Sodium (137 - 145 mmol/L) 139 Potassium (3.5 - 5.1 mmol/L) 4.3 Chloride (98 - 107 mmol/L) 101 Carbon Dioxide (22 - 30 mmol/L) 28 Anion Gap (5 - 16) 9 BUN (9 - 20 mg/dL) 8 L Creatinine (0.7 - 1.2 mg/dL) 0.8 Estimated GFR (>60 ml/min) > 60 BUN/Creatinine Ratio (7 - 25 %) 10.0 Hematology CBC w Diff NO MAN DIFF REQ WBC (4.8 - 10.8 /CUMM) 9.9 RBC (4.70 - 6.10 /CUMM) 3.12 L Hgb (14.0 - 18.0 G/DL) 9.6 L Hct (42 - 52 %) 29.9 L MCV (80.0 - 94.0 FL) 95.8 H MCH (27.0 - 31.0 PG) 30.9 MCHC (33.0 - 37.0 G/DL) 32.2 L RDW (11.5 - 14.5 %) 18.8 H Plt Count (130 - 400 /CUMM) 675 H MPV (7.4 - 10.4 FL) 6.6 L Gran % (42.2 - 75.2 %) 55.2 Lymphocytes % (20.5 - 51.1 %) 16.5 L Monocytes % (1.7 - 9.3 %) 5.9 Eosinophils % (0 - 5 %) 22.0 H Basophils % (0.0 - 2.0 %) 0.4 Absolute Granulocytes (1.4 - 6.5 /CUMM) 5.5 Absolute Lymphocytes (1.2 - 3.4 /CUMM) 1.6 Absolute Monocytes (0.10 - 0.60 /CUMM) 0.6 Absolute Eosinophils (0.0 - 0.7 /CUMM) 2.2 Absolute Basophils (0.0 - 0.2 /CUMM) 0 Other Body Source Fluid Creatinine (mg/dL) 0.8 Assessment/Plan Assessment/Plan This is a 37 M POD#5 s/p robotic TPC with j pouch and diverting ileostomy and incidental cystotomy repair with a Cr of 0.8 from his NELLIE drain, inconsistent with urine leakage Continue low residue ERAS protocol Ostomy teaching Old NELLIE site with drainage continue dsd/ta[e DVT ppx - alps, hsq, ambulate D/C home w/ services today Cystoscope/wills removal with Dr. Calderon next friday Will d/w Dr. Paz Problem List: 1. Indeterminate colitis Core Measures Venous Thromboembolism VTE Risk Factors Surgery No Mechanical VTE Prophylaxis d/t N/A MechProphylax Ordered No VTE Pharm Prophylaxis d/t NA PharmProphylax ordered
== END 2018-01-27 14:03 | DRG 331 ==
LOC: SDA 01-22 02:39 → ENRESERV 01-22 15:26 → ENTRNSPT 01-22 15:56 → EDTRNSPT 01-22 16:01 → EDTRNSPTSTS 01-22 16:01 → 2NA 01-22 16:10 → CMPTRNSPT 01-22 16:30 → ENPENDDIS 01-27 08:49 → 2NA 01-27 14:03
PROVIDERS: Colon & Rectal Surgery; Nurse Practitioner; Physician Assistant; Physician Assistant Surgical
PROC: 8E0W4CZ Robotic Assisted Procedure of Trunk Region, Percutaneous Endoscopic Approach (ICD-10-PCS; principal; 2018-01-22)
PROC: 3E0T3BZ Introduction of Anesthetic Agent into Peripheral Nerves and Plexi, Percutaneous Approach (ICD-10-PCS; principal; 2018-01-22)
PROC: 0DTP4ZZ Resection of Rectum, Percutaneous Endoscopic Approach (ICD-10-PCS; principal; 2018-01-22)
PROC: 0DTM4ZZ Resection of Descending Colon, Percutaneous Endoscopic Approach (ICD-10-PCS; principal; 2018-01-22)
PROC: 0D1B4Z4 Bypass Ileum to Cutaneous, Percutaneous Endoscopic Approach (ICD-10-PCS; principal; 2018-01-22)
DX: K52.3 Indeterminate colitis (principal); M06.9 Rheumatoid arthritis, unspecified
CPT/HCPCS: 2NAP; 36415; 36592; 82436; 82570; 87086; C9290; J0131; J0690; J1644; J2405; J2550; J3490; J7042

== ENCOUNTER 2018-04-09 02:22 | Inpatient (IN) | payer OTHER ==
[~2018-04-09] VITALS: Ht 185.4 cm; Wt 90.0 kg
[~2018-04-09 02:22] MED LIST changes: +LOMOTIL 2.5-0.1 EACH PO; +NEURONTIN300 M1 PO; +ROXICODONE5 M1 PO; +TYLENOL EXTRA500 M2 PO
--- NOTE | 2018-04-09 10:20 | Operative Report ---
Operative/Inv Procedure Report Surgery Date: 04/09/18 Name of Procedure: Open reversal of ileostomy with partial small bowel resection Pre-Operative Diagnosis: Status post total proctocolectomy with ileoanal J-pouch and diverting loop ileostomy Post-Operative Diagnosis: Same Estimated Blood Loss: less than 50ml Surgeon/Business Employment Specialist: Jean-Pierre Paz Jr., DO educational/development assistant Angela SUAZO Second assist Mey Arciniega MS4 Anesthesia: general endotracheal tube, block Monitors: Per routine IV Fluids: Refer to anesthesia record Implants: None Urine Output: Refer to anesthesia Drains: 10 flat Jv-Peterson drain placed in subcu tissue Specimens: Portion of ileum/ileostomy Complications: None Condition: Good Operative Indication: This is a 37-year-old gentleman with indeterminate colitis who is status post total proctocolectomy with J-pouch construction. He had diverting ileostomy formed at the time of his initial operation. He is recovered from that operation presents today for reversal of his ileostomy Operative/Procedure Note Note: On the day before his operation he did a bowel prep which included just clear liquids with oral antibiotic On the morning of his operation he presented to [facility]. He received the typical pre-the operative medications and the only area He was taken to the operating room and placed in the supine position on the operating room table. He underwent bilateral tap block performed by the anesthesia team The stoma was oversewn. The abdomen was prepped and draped in usual fashion. At this point we began surgery. An elliptical incision was carried out around the stoma and the surrounding tissues were meticulously dissected until it reached the fascia. The bowel was freed from the fascial adhesions circumferentially I had to extend the fascial incision about a centimeter to centimeter and a half to reach some adhesions that had formed underneath the fascia. Once the bowel was completely free up appeared to resect the end. The 2 ends of the loop were isolated from each other GOLDIE stapler was used by the bowel on either side. The mesentery between was divided with the vessel sealer. The specimen was removed from the field. Enterotomies were intentionally created by excising the corners of the staple line on either side. A GOLDIE 80 blue loaded stapler was used to create the common channel. One arm of the stapling device was placed on each limb of the bowel. The stapler was closed and fired. The edges of the common enterotomy were approximated with Allis clamps and then a TA 60 stapler was used to seal the enterotomy. A small ring of tissue was excised. Anti-tension suture was placed with 2-0 Vicryl suture. There was a very superficial serosal tear noted on 1 of the limbs of the bowel. The serosal edges were reapproximated with interrupted 3-0 Vicryl suture. The bowel was reduced back into the abdominal cavity. The fascial edges were exposed and freshened up with the Bovie. The fascial defect was closed transversely with a running #1 PDS suture. Next the subcu was pulse lavaged with 1800 cc of sterile saline. A ESTELA drain was placed in the base of the wound brought out through a separate stab incision. The drain was secured to the skin with a 3-0 nylon suture. The skin was then closed in 2 layers. The deep adipose tissue was approximated with 3-0 Vicryl suture. The skin was closed with 3-0 nylon sutures in a vertical mattress fashion. Next the skin was cleansed and dried. Bacitracin ointment and a sterile dressing was placed over the incision. Drain sponge was placed. The procedure was concluded. The patient was extubated in the operating room. Patient tolerated procedure well was taken to recovery area in good condition. At the end of this operation all needle sponges and instrument were accounted for. Findings: [id number] anastomosis created Discharge Disposition: Same Day Admissions CC: Dm TIM,Don
--- NOTE | 2018-04-09 10:42 | Patient Discharge Instructions ---
See Addendum Discharge Instructions General Discharge Information You were seen/treated for: COLOSTOMY REVERSAL You had these procedures: REVERSAL ILEOSTOMY Watch for these problems: WOUND DRAINAGE FEVERS OR CHILLS Call Surgeon to remove: Fabiano Daily wet to dry dressings: No No bath, but you may shower: Yes Other wound care: KEEP SURGICAL WOUND CDI, CHANGE DRESSING DAILY Activity Full Activity/No Limits: No Activity Self Limited: Yes Acute Coronary Syndrome Inclusion Criteria At DC or during hospital stay patient has or had the following: ACS DIAGNOSIS No Discharge Core Measures Meds if any: Prescribed or Continued at Discharge Meds if any: NOT Prescribed or Continued at Discharge Congestive Heart Failure Inclusion Criteria At DC or during hospital stay patient has or had the following: CHF DIAGNOSIS No Discharge Core Measures Meds if any: Prescribed or Continued at Discharge Meds if any: NOT Prescribed or Continued at Discharge Cerebrovascular accident Inclusion Criteria At DC or during hospital stay patient has or had the following: CVA/TIA Diagnosis No Discharge Core Measures Meds if any: Prescribed or Continued at Discharge Meds if any: NOT Prescribed or Continued at Discharge Venous thromboembolism Inclusion Criteria VTE Diagnosis No VTE Type NONE VTE Confirmed by (Test) NONE Discharge Core Measures - Per Current guidelines, there needs to be overlap - treatment for the first 5 days of Warfarin therapy. - If discharged on Warfarin prior to 5 days of - overlap therapy, the patient will need to be - assessed for post discharge needs including - *Post discharge parental anticoagulation - *Warfarin and/or parental anticoagulation education - *Follow up date to check INR post discharge At least 5 days overlap therapy as Inpatient No Meds if any: Prescribed or Continued at Discharge Note: Overlap Therapy is Warfarin and Anticoagulant Meds if any: NOT Prescribed or Continued at Discharge
--- NOTE | 2018-04-09 10:48 | Surgical Discharge Summary ---
Visit Information Visit Dates Admission Date: 04/09/18 Discharge Date: 04/11/18 History of Present Illness Chief Complaint: ILEOSTOMY REVERSAL Medical History Neurological: NONE EENT: NONE Cardiovascular: NONE Respiratory: NONE Gastrointestinal: Crohn's disease Hepatic: NONE Renal: NONE Musculoskeletal: NONE Psychiatric: NONE Endocrine: NONE History of MRSA: No History of VRE: No History of CDIFF: No Surgical History Pertinent Surgical History: colectomy in january 2018 with ostomy Psychosocial History What is Your Primary Language? 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 He had diverting ileostomy formed at the time of his initial operation. He is recovered from that operation presents today for reversal of his ileostomy. Presented electively for open reversal of ileostomy with partial small bowel resection on 04/09/18 by , for pre-op history of total proctocolectomy with ileoanal J-pouch and diverting loop ileostomy. ERAS protocol followed. Slow diet advancement, as tolerated. ESTELA drain removed prior to discharge home on 04/11. Complications: NONE Allergies: Coded Allergies: No Known Allergies (04/07/18) Significant Procedures: Surgery Date: 04/09/18 Name of Procedure: Open reversal of ileostomy with partial small bowel resection Disposition Summary Disposition Principal Diagnosis: Status post total proctocolectomy with ileoanal J-pouch and diverting loop ileostomy Additional Diagnosis: s/p Open reversal of ileostomy with partial small bowel resection Discharge Disposition: home or self care Discharge Instructions General Discharge Information Code Status: Full Code Patient's Diet: low fiber diet Patient's Activity: as tolerated. no heavy lifting >10 lbs Follow-Up Instructions/Appts: 1-2 weeks with will need sutures removed at follow up appointment Medications at Discharge Discharge Medications: Stop taking the following medications: Diphenoxylate HCl/Atropine (Lomotil 2.5-0.025 MG Tablet) 2.5 MG-0.025 MG TABLET ORAL THREE TIMES DAILY Qty = 30 Copies To: Jean-Pierre Ortega MD
[2018-04-09 12:30] VITALS: BP 130/80
[2018-04-09 14:30] VITALS: BP 136/82
--- NOTE | 2018-04-09 15:53 | Admission Core Measures ---
Acute Coronary Syndrome (CM) ACS Core Measures Acute Coronary Syndrome Diagnosis No Congestive Heart Failure (NEW) CHF Core Measures Congestive Heart Failure Diagnosis No Cerebrovascular Accident CVA Core Measures CVA/TIA Diagnosis No Venous Thromboembolism VTE Core Zoila (View Protocol) VTE Risk Factors Surgery No Mechanical VTE Prophylaxis d/t N/A MechProphylax Ordered No VTE Pharm Prophylaxis d/t NA PharmProphylax ordered Problem List As ranked by this Provider includes Assessment & Plan 1. Indeterminate colitis HOME MEDS Home Med List Diphenoxylate HCl/Atropine (Lomotil 2.5-0.025 MG Tablet) 2.5 MG-0.025 MG TABLET 1 TAB PO TID POSTOP
--- NOTE | 2018-04-09 16:05 | PN- General Surgery ---
Subjective Subjective: No acute post operative events. Procedure tolerated well. Has been tolerating clear liquids. No complaints of nausea or vomitting. No complaints of shortness of breath. Has yet to ambulate. Wills catheter in place. Objective Vital Signs and I&Os Vital Signs Date Time Temp Pulse Resp B/P B/P Pulse O2 O2 Flow FiO2 Mean Ox Delivery Rate 04/09 1339 97.9 79 20 122/60 97 Room Air Room Air Physical Exam: General: Alert and oriented x3, no acute distress Cardiac: RRR, s1s2 Pulm: CTA bilaterally, non-labored respiratory effort Abdomen: Soft, non-distended, appropriate dustin-incisional tenderness Extremities: Moves all extremities, distal sensation grossly intact, skin warm and well perfused. Bilateral calves soft and non-tender. Surgical site: Abodmen, Dressing stained with borders clearly marked and no extension beyond markings, no evidence of active bleeding, no hematoma. ESTELA in place, holding suction. Assessment/Plan Assessment/Plan This is a 37 year old male with a h signficant for indeterminate colitis who is pod 0 s/p ileostomy reversal. -ERAS protocol- Gabapentin 300 tid Tylenol 975 q6 Celebrex 200 bid prn tramadol 50-100 q6 prn oxycodone 5-10 q4-6 Entereg 12 bid until bowel function clear liquid diet hep sub q wills until pod 1 oob as tolerated Will discuss plan of care with Dr. Paz Core Measures Venous Thromboembolism VTE Risk Factors Surgery No Mechanical VTE Prophylaxis d/t N/A MechProphylax Ordered No VTE Pharm Prophylaxis d/t NA PharmProphylax ordered
[2018-04-09 21:23] VITALS: BP 117/71
[2018-04-10 01:30] VITALS: BP 145/84
[2018-04-10 04:30] VITALS: BP 147/87
[2018-04-10 06:24] VITALS: BP 147/87
--- NOTE | 2018-04-10 07:27 | PN- General Surgery ---
See Addendum Subjective Subjective: Reports pain controlled. 2 bms overnight. Tolerating clears. No nausea. Out of bed without dizziness. No shortness of breath. No chest pains. Eager to advance diet. Objective Vital Signs and I&Os Vital Signs Date Time Temp Pulse Resp B/P B/P Pulse O2 O2 Flow FiO2 Mean Ox Delivery Rate 04/10 0637 16 04/10 0430 97.1 64 147/87 98 04/10 0130 97.8 62 20 145/84 96 Room Air 04/09 2123 98.2 78 16 117/71 97 Room Air 04/09 1430 98.4 72 16 136/82 100 Room Air 04/09 1339 Room Air Room Air 04/09 1230 98.2 68 16 130/80 99 Room Air Intake & Output 04/10 0800 04/10 0000 04/09 1600 04/09 0804/09 0000 04/08 1600 Intake Total 460 830 Output Total 402 Balance 460 428 Intake, IV 400 350 Intake, Oral 60 480 Output, 2 Drainage Output, Urine 400 Patient 196 lb 195 lb Weight Weight Bed scale Measurement Method Physical Exam: General - alert & oriented x 3. comfortable. no acute distress. Lungs - clear bilaterally. no w/r/r. Cardiac - s1s2. reg. Abdomen - soft. midline dressing stained but intact. ESTELA drain to suction, with scant bloody drainage. expected dustin-incisional tenderness. - wills draining clear, yellow urine. Extremities - warm bilaterally. no c/c/e. calves soft and nontender b/l. Current Medications: Current Medications Sig/Steve Start time Last Medication Dose Route Stop Time Status Admin Acetaminophen 975 MG Q6H 04/09 1545 AC 04/10 PO 0448 Acetaminophen 975 MG Q6P PRN 04/09 1045 DC PO Acetaminophen 650 MG Q6P PRN 04/09 1015 DC PO Acetaminophen 0 .STK-MED ONE 04/09 0741 DC IV Acetaminophen 1,000 MG ONCE 04/09 0000 DC PO 04/09 2359 Alvimopan 12 MG BID 04/09 2100 AC 04/09 PO 2057 Alvimopan 12 MG ONCE 04/09 0000 DC PO 04/09 2359 Bacitracin 0 .STK-MED ONE 04/09 0934 DC .ROUTE Cefazolin Sodium 2 GM IQ8 04/09 1600 DC N/A 1 UNIT IV 04/09 1629 Cefazolin Sodium 2,000 MG ONCE 04/09 0000 DC IV 04/09 2359 Celecoxib 200 MG BID 04/09 2100 CAN PO Fentanyl Citrate 0 .STK-MED ONE 04/09 0742 DC .ROUTE Fentanyl Citrate 0 .STK-MED ONE 04/09 0742 DC .ROUTE Gabapentin 300 MG 2200 04/09 2200 DC PO 04/09 2201 Gabapentin 100 MG 2200 04/09 2200 CAN PO 04/09 2201 Gabapentin 300 MG Q8 04/09 2200 AC 04/10 PO 0447 Gabapentin 600 MG ONCE 04/09 0000 DC PO 04/09 2359 Heparin Sodium 5,000 UNIT Q8 04/09 1400 AC 04/10 (Porcine) SC 0451 Heparin Sodium 5,000 UNIT ONCE 04/09 0000 DC (Porcine) SC 04/09 2359 Hydromorphone HCl 0 .STK-MED ONE 04/09 1145 DC .ROUTE Hydromorphone HCl 0 .STK-MED ONE 04/09 1114 DC .ROUTE Hydromorphone HCl 0 .STK-MED ONE 04/09 1047 DC .ROUTE Hydromorphone HCl 0 .STK-MED ONE 04/09 0741 DC .ROUTE Lactated Ringer's 1,000 ML Q20H 04/09 1030 DC 04/09 IV 1804 Metronidazole 500 MG IQ8 04/09 1600 DC N/A 1 UNIT IV 04/09 1659 Metronidazole 500 MG ONCE 04/09 0000 DC Sodium Chloride 100 ML IV 04/09 2359 Midazolam HCl 0 .STK-MED ONE 04/09 0741 DC .ROUTE Non-Formulary 0 SEE ADMIN CRITERIA 04/09 1030 CAN Medication ANY Ondansetron HCl 0 .STK-MED ONE 04/09 1019 DC .ROUTE Ondansetron HCl 4 MG Q6P PRN 04/09 1015 AC IV Oxycodone HCl 5 MG Q4P PRN 04/09 1545 AC PO Oxycodone HCl 10 MG Q4P PRN 04/09 1545 AC 04/10 PO 0453 Oxycodone/ 1 TAB Q4P PRN 04/09 1015 DC Acetaminophen PO Oxycodone/ 2 TAB Q4P PRN 04/09 1015 DC 04/09 Acetaminophen PO 1427 Scopolamine HBr 1 PAT ONCE 04/09 0000 DC TOP 04/09 2359 Tramadol HCl 50 MG Q6P PRN 04/09 1600 AC PO Tramadol HCl 100 MG Q6P PRN 04/09 1600 AC 04/09 PO 1920 Assessment/Plan Assessment/Plan This 37 year old male with a h signficant for indeterminate colitis, is pod#1 s/p ileostomy reversal tolerating clears. d/c iv fluids advance to fulls d/c wlils continue pain medication as ordered, as per ERAS protocol oob/ambulation encouraged f/u AM labs hep sc - dvt ppx ?d/c entereg monitor ESTELA drain, likely to remove tomorrow will d/w Core Measures Venous Thromboembolism VTE Risk Factors Surgery No Mechanical VTE Prophylaxis d/t N/A MechProphylax Ordered No VTE Pharm Prophylaxis d/t NA PharmProphylax ordered
[2018-04-10 08:27] VITALS: BP 122/60
[2018-04-10 10:30] LABS: ABSOLUTE BASOPHIL COUNT 0 /CUMM (0.0-0.2); ABSOLUTE EOSINOPHIL COUNT 0.1 /CUMM (0.0-0.7); ABSOLUTE GRANULOCYTE CT 5.6 /CUMM (1.4-6.5); ABSOLUTE LYMPH COUNT 2.5 /CUMM (1.2-3.4); ABSOLUTE MONOCYTE COUNT 0.6 /CUMM (0.10-0.60); BASOPHIL % 0.4 % (0.0-2.0); EOSINOPHIL % 0.7 % (0-5); GRANULOCYTE % 63.4 % (42.2-75.2); HEMATOCRIT 39.2 % (42-52); MEAN CORPUSCULAR HGB 26.5 PG (27.0-31.0); MEAN CORPUSCULAR HGB CONC 32.9 G/DL (33.0-37.0); MEAN CORPUSCULAR VOLUME 80.7 FL (80.0-94.0); MEAN PLATELET VOLUME 7.9 FL (7.4-10.4); PLATELET COUNT 367 /CUMM (130-400); RBC DISTRIBUTION WIDTH 19.3 % (11.5-14.5); RED BLOOD CELL CT 4.86 /CUMM (4.70-6.10); WHITE BLOOD CELL COUNT 8.8 /CUMM (4.8-10.8)
[2018-04-10 13:54] VITALS: BP 130/60
[2018-04-10 21:50] VITALS: BP 120/75
[2018-04-11 08:24] VITALS: BP 147/79
[2018-04-11] MEDS ORDERED: OXYCODONE HCL5 M1 PO (10:27)
--- NOTE | 2018-04-11 10:34 | PN- General Surgery ---
See Addendum Subjective Subjective: Reports pain controlled with oxycodone. Tolerating fulls. Reports flatus and + stool. Eager to advance to low fiber diet today. Ambulating without difficulty. No dizziness. No shortness of breath. No chest pains. Voiding without difficulty. Objective Vital Signs and I&Os Vital Signs Date Time Temp Pulse Resp B/P B/P Pulse O2 O2 Flow FiO2 Mean Ox Delivery Rate 04/11 824 97.5 63 18 147/79 96 04/10 2150 98.2 63 18 120/75 96 Room Air 04/10 1354 97.5 78 20 130/60 97 Room Air Intake & Output 04/11 1600 04/11 0804/11 0000 04/10 1600 04/10 0000 Intake Total 600 960 830 Output Total 0 0 500 402 Balance 0 0 100 960 428 Intake, IV 400 350 Intake, Oral 600 560 480 Number 2 2 Bowel Movements Output, 0 0 2 Drainage Output, Urine 500 400 Patient 198 lb 196 lb Weight Weight Bed scale Measurement Method Physical Exam: General - alert & oriented x 3. comfortable. no acute distress. Lungs - clear bilaterally. no w/r/r. Cardiac - s1s2. reg. Abdomen - soft. dressings removed. low transverse incision well approximated with sutures. no erythema or exudates. ESTELA drain with scant serous drainage. expected dustin-incisional tenderness. Extremities - warm bilaterally. no c/c/e. calves soft and nontender b/l. Current Medications: Current Medications Sig/Steve Start time Last Medication Dose Route Stop Time Status Admin Acetaminophen 975 MG Q6H 04/09 1545 AC 04/11 PO 0901 Alvimopan 12 MG BID 04/09 2100 DC 04/10 PO 0923 Gabapentin 300 MG Q8 04/09 2200 AC 04/11 PO 0657 Heparin Sodium 5,000 UNIT Q8 04/09 1400 AC 04/11 (Porcine) SC 0657 Ondansetron HCl 4 MG Q6P PRN 04/09 1015 AC IV Oxycodone HCl 5 MG Q4P PRN 04/09 1545 AC PO Oxycodone HCl 10 MG Q4P PRN 04/09 1545 AC 04/11 PO 0657 Patient Medication 1 ED ONE ONE 04/10 2000 MD Teaching ED 04/10 2001 Tramadol HCl 50 MG Q6P PRN 04/09 1600 AC PO Tramadol HCl 100 MG Q6P PRN 04/09 1600 AC 04/10 PO 1553 Results Last 48 Hours of Labs: Laboratory Tests 04/10 0830 Chemistry Sodium (137 - 145 mmol/L) 139 Potassium (3.5 - 5.1 mmol/L) 3.5 Chloride (98 - 107 mmol/L) 104 Carbon Dioxide (22 - 30 mmol/L) 26 Anion Gap (5 - 16) 9 BUN (9 - 20 mg/dL) 10 Creatinine (0.7 - 1.2 mg/dL) 0.8 Estimated GFR (>60 ml/min) > 60 BUN/Creatinine Ratio (7 - 25 %) 12.5 Hematology CBC w Diff NO MAN DIFF REQ WBC (4.8 - 10.8 /CUMM) 8.8 RBC (4.70 - 6.10 /CUMM) 4.86 Hgb (14.0 - 18.0 G/DL) 12.9 L Hct (42 - 52 %) 39.2 L MCV (80.0 - 94.0 FL) 80.7 MCH (27.0 - 31.0 PG) 26.5 L MCHC (33.0 - 37.0 G/DL) 32.9 L RDW (11.5 - 14.5 %) 19.3 H Plt Count (130 - 400 /CUMM) 367 MPV (7.4 - 10.4 FL) 7.9 Gran % (42.2 - 75.2 %) 63.4 Lymphocytes % (20.5 - 51.1 %) 28.4 Monocytes % (1.7 - 9.3 %) 7.1 Eosinophils % (0 - 5 %) 0.7 Basophils % (0.0 - 2.0 %) 0.4 Absolute Granulocytes (1.4 - 6.5 /CUMM) 5.6 Absolute Lymphocytes (1.2 - 3.4 /CUMM) 2.5 Absolute Monocytes (0.10 - 0.60 /CUMM) 0.6 Absolute Eosinophils (0.0 - 0.7 /CUMM) 0.1 Absolute Basophils (0.0 - 0.2 /CUMM) 0 Assessment/Plan Assessment/Plan This 37 year old male with a pmh signficant for indeterminate colitis, is pod#2 s/p open reversal of ileostomy with partial small bowel resection, for hx s/p total proctocolectomy with ileoanal J-pouch and diverting loop ileostomy tolerating fulls. advance to low residue diet entereg stopped yesterday dressings changed ESTELA drain removed oob/ambulating well hep sc - dvt ppx d/c home after lunch if tolerating diet will d/w Core Measures Venous Thromboembolism VTE Risk Factors Surgery No Mechanical VTE Prophylaxis d/t N/A MechProphylax Ordered No VTE Pharm Prophylaxis d/t NA PharmProphylax ordered
== END 2018-04-11 13:07 | DRG 331 ==
LOC: SDA 02:22 → ENRESERV 10:53 → ENTRNSPT 11:52 → EDTRNSPTSTS 12:01 → 2NB 12:17 → CMPTRNSPT 12:23 → ENPENDDIS 04-11 10:24 → 2NB 04-11 13:07
PROVIDERS: Physician Assistant
PROC: 0DBB0ZZ Excision of Ileum, Open Approach (ICD-10-PCS; principal; 2018-04-09)
PROC: 3E0T3BZ Introduction of Anesthetic Agent into Peripheral Nerves and Plexi, Percutaneous Approach (ICD-10-PCS; principal; 2018-04-09)
DX: Z43.2 Encounter for attention to ileostomy (principal); K52.89 Other specified noninfective gastroenteritis and colitis; D64.9 Anemia, unspecified
CPT/HCPCS: 2NSBP; 36415; 36592; 82436; 87086; J0131; J0690; J1644; J2405; J3490; J7120